=== PATIENT | male | born 1960 | race Caucasian/White ===

== ENCOUNTER 2016-11-18 14:55 | Emergency (ER) | payer OTHER ==
[~2016-11-18] VITALS: Ht 175.3 cm; Wt 100.8 kg
[2016-11-18 14:58] VITALS: BP 176/95; TEMP 36.8; Ht 175.3 cm; Wt 100.8 kg
--- NOTE | 2016-11-18 15:41 | DIAGNOSTIC IMAGING REPORT ---
LEFT KNEE 1 OR 2 VIEWS ROUTINE CLINICAL HISTORY: Knee pain and swelling status post trauma COMPARISON: None. DISCUSSION: No acute fractures are visualized. Cortical irregularity involving the lateral margin of the proximal fibula, likely represents a small spur. Correlation with the patient's site of pain is advocated. There are mild osteoarthritic changes most pronounced the medial joint compartment. There is pronounced prepatellar soft tissue swelling. IMPRESSION: 1. Pronounced prepatellar soft tissue swelling 2. No acute fractures. Minimal irregularity of the proximal fibula, likely representing a spur. Electronically signed by: Rasheed Lang M.D. 11/18/2016 3:40 PM Dictated Date/Time: 11/18/2016 3:38 PM
--- NOTE | 2016-11-18 16:12 | EMERGENCY ROOM VISIT NOTE ---
ED Visit Note First contact with patient: 15:07 CHIEF COMPLAINT: Left knee swelling HISTORY OF PRESENT ILLNESS: This 55-year-old male presents the ER with chief complaint of left knee swelling. The patient states when he was at work today he went down a hill and stumbled but did not fall. He did not have any pain at that time which was approximately 8 AM. At 9:30 he felt something in his left knee and then later he looked down and saw that his knee was swollen. It has been getting progressively larger. The patient denies any redness or any pain. He denies any giving out or locking of the knee. REVIEW OF SYSTEMS: 6 system review was performed and was negative unless stated otherwise in history of present illness. PMH: The patient is healthy; there is no significant medical or surgical history. SOCIAL HISTORY: Patient lives with his . The patient admits to tobacco use but denies any alcohol use. PHYSICAL EXAM: Vital Signs: Were reviewed Reviewed Nurse's notes. GENERAL: 55- year-old white male appears in no acute distress. MENTAL STATUS: Alert, oriented, and cooperative. LEFT KNEE: The patient has diffuse swelling over the patella. No redness noted. The patient is able to flex and extend his knee without difficulty. No ligament instability noted. EMERGENCY DEPARTMENT COURSE: The patient was evaluated. The patient's EMR medication list were reviewed. X-ray of the left knee was ordered and interpreted by the radiologist and myself. DIAGNOSTICS:LEFT KNEE 1 OR 2 VIEWS ROUTINE CLINICAL HISTORY: Knee pain and swelling status post trauma COMPARISON: None. DISCUSSION: No acute fractures are visualized. Cortical irregularity involving the lateral margin of the proximal fibula, likely represents a small spur. Correlation with the patient's site of pain is advocated. There are mild osteoarthritic changes most pronounced the medial joint compartment. There is pronounced prepatellar soft tissue swelling. IMPRESSION: 1. Pronounced prepatellar soft tissue swelling 2. No acute fractures. Minimal irregularity of the proximal fibula, likely representing a spur. Electronically signed by: Rasheed Lang M.D. 11/18/2016 3:40 PM Dictated Date/Time: 11/18/2016 3:38 PM The patient was informed of the findings. Wilfrido wrap was placed on the knee. The patient was discharged home in stable condition. DIAGNOSIS: Left knee swelling DISCHARGE INSTRUCTIONS: Ibuprofen 600 mg every 6 hours with food. Keep leg elevated whenever possible over the weekend. Wear Wilfrido wrap for the next 5 days except for bathing. If symptoms are not improving by Monday, call Dr. Miller for an appointment. Current/Historical Medications No Active Prescriptions or Reported Meds Vital Signs Date Time Temp Pulse Resp B/P (MAP) Pulse Ox O2 Delivery O2 Flow Rate FiO2 11/18/16 14:58 36.8 75 18 176/95 96 Room Air Departure Information Prescriptions No Active Prescriptions or Reported Meds Referrals No Doctor, Assigned (PCP) Patient Instructions My [facility]
[2016-11-18 16:34] VITALS: PULSE 70; O2SAT 96
== END 2016-11-18 16:35 | disposition home or self-care (01) ==
LOC: C.EDB 14:57 → C.EDD 16:35
DX: R22.42 Localized swelling, mass and lump, left lower limb (principal); F17.200 Nicotine dependence, unspecified, uncomplicated